=== PATIENT | female | born 1955 | race Two or more races ===

== ENCOUNTER 2019-03-12 09:19 | Outpatient (CLI) | payer OTHER ==
[~2019-03-12 09:19] MED LIST: AZATHIOPRINE50 MG; ECONOPRED PLUS10 ML; HYDROXYCHLOROQ200 MG; LISINOPRIL10 MG; TENORMIN100 MG
== END 2019-03-12 09:23 | disposition home or self-care (01) ==
LOC: SONOGRAMA 09:19
DX: R22.2 Localized swelling, mass and lump, trunk (principal)